=== PATIENT | female | born 1945 | race Two or more races ===

== ENCOUNTER 2018-04-14 14:49 | Emergency (ER) | payer OTHER ==
[~2018-04-14] VITALS: Ht 121.9 cm; Wt 90.7 kg
[2018-04-14] MEDS ORDERED: TRAMADOL HCL50 MG (15:35)
[2018-04-14] MEDS ORDERED: BACLOFEN20 MG (15:35)
[2018-04-14] MEDS ORDERED: ALTOPREV20 MG (15:35)
[2018-04-14] MEDS ORDERED: PRILOSEC10 MG (15:36)
[2018-04-14] MEDS ORDERED: ZOFRAN4 MG (15:37)
== END 2018-04-14 18:34 | disposition home or self-care (01) ==
LOC: ER 14:49
DX: K52.89 Other specified noninfective gastroenteritis and colitis (principal); B35.4 Tinea corporis